=== PATIENT | male | born 1940 | race Caucasian/White ===

== ENCOUNTER 2020-08-21 09:07 | Emergency (ER) | payer OTHER ==
[~2020-08-21] VITALS: Ht 180.3 cm; Wt 54.4 kg
[~2020-08-21 09:07] MED LIST: ALLERGY10 M2; ARICEPT10 M1 PO; ASPIRIN325 PO; FISH OIL 1,001000 M1 PO; FOLIC ACID 40400 MC1 PO; LISINOPRIL2.5 MG PO; MULTIVITAMINS1 EAC7 PO; NEURONTIN 300300 M1 PO; NIASPAN ER 101000 M1 PO; OMEPRAZOLE40 MG PO; PRAVASTATIN SOD40 MG PO
[2020-08-21 09:17] VITALS: BP 00/00
[2020-08-21] MEDS ORDERED: REVLIMID2.5 MG PO (09:37)
== END 2020-08-21 09:17 ==
LOC: M.ERS 09:07
DX: I46.9 Cardiac arrest, cause unspecified (principal); Z90.89 Acquired absence of other organs; Z95.1 Presence of aortocoronary bypass graft